=== PATIENT | female | born 1975 | race Hispanic/Latino ===

== ENCOUNTER 2024-12-25 13:00 | Day surgery (SDC) | payer OTHER, SELFPAY ==
[2024-12-17 08:36] VITALS: BMI 37.9
[2024-12-25] VITALS (12 sets, daily range): BP systolic 84–130; BP diastolic 41–74; PULSE 69–87; RESP 10–19; TEMP 35.8–36.5; O2SAT 90–100; BMI 37.8; BMI 31.2
--- NOTE | 2024-12-25 | PATH_ITS ---
[facility] Accession Number: [id number] No. of containers..01 Tissue . 01 Material submitted: . uterus - CERVIX, UTERUS, BILATERAL FALLOPIAN TUBES . 01 Diagnosis: CERVIX, UTERUS AND BILATERAL FALLOPIAN TUBES; HYSTERECTOMY AND BILATERAL SALPINGECTOMY (PRESERVED OVARIES): Uterine weight: 256 grams. Mild chronic cervicitis and tunnel clusters; negative for dysplasia and malignancy. Mixed secretory and inactive endometrium with stromal changes compatible with exogenous hormonal/progestin effect. Negative for atypia, hyperplasia and malignancy. IUD present. Benign, multiple leiomyomas up to 4.3 cm in greatest dimension, in submucosal, subserosal, and intramural location with focal hyalinization and degenerative changes. Negative for cytologic atypia, increased mitotic activity, necrosis or malignancy. Benign bilateral fallopian tubes; right fallopian tube with focal features suggestive of hydrosalpinx. Negative for atypia or malignancy. [facility] 12/31/2024 1438 Local . 01 Electronically signed: . Yanet Cartagena MD, Pathologist NPI- [id number] . 01 Gross description: . Received in formalin with two identifiers and cervix, uterus,. and bilateral fallopian tubes, is an intact uterus (256 grams, 12.1 cm superior to inferior, 7.2 cm medial to lateral, 6.2 cm anterior to posterior) with attached cervix (3.5 x 3.1 cm), attached left fimbriated fallopian tube (6.5 x 0.9 cm), and attached right fallopian tube with no fimbriae identified (2.9 x 0.7 cm and no fimbriae are identified in the container), with no additional adnexa. . The ectocervix is pink-alvarez, smooth and glistening with a yellow-alvarez cystic nodule measuring 0.6 x 0.5 x 0.4 cm containing yellow-alvarez cloudy mucoid material. The os is circular and is 0.6 cm in diameter. The anterior paracervical margin is inked blue while the posterior paracervical margin is inked black. The serosa is diffusely alvarez, roughened, and distorted by nodules ranging from 0.3 to 1.6 cm in greatest dimension, as well as several cystic structures filled with clear serous fluid measuring up to 0.7 cm in greatest dimension. . The endocervical canal has alvarez herringbone mucosa and measures 3.6 cm in length. The endometrial cavity (3.5 cm from cornu to cornu and 6.3 cm in length) is distorted by multiple well-circumscribed, white, whorled nodules located intramurally, subserserosally, and submucosally ranging from 0.4 to 4.3 cm in greatest dimension with no hemorrhage or necrosis identified. Located within the endometrial cavity is a white T-shaped IUD (3.2 x 3.2 cm) located with the crossbars extending from cornu to cornu and the central section located within the body of the endometrial cavity. The wires measure 3.2 cm in length and remain within the endometrial cavity. The endometrium is pink and velvety and averages 0.1 cm thick. The myometrium is pink-alvarez trabecular measuring up to 4.2 cm in maximum thickness. No hemorrhage or necrosis is identified within the nodules. Both tubes have violaceous smooth serosa with no cysts identified. The lumen of the left fallopian is stellate and unremarkable while the lumen of the right fallopian tube is slightly dilated and filled with hemorrhagic material. . Stockroom Helper sections are submitted as follows: A1: Anterior cervix with yellow cystic structure. A2: Posterior cervix. A3: Anterior full thickness section. A4: Composite posterior full thickness section. A5-A6: Nodules. A7: Left fallopian tube to include one-half of bisected fimbriae and cross sections. A8: Right fallopian tube to include one-half of nonfimbriated terminal end cross sections. ([id number]) /MRV 12/26/2024 1836 Local . 01 Pathologist provided ICD-10: R10.2, D25.9 . 01 CPT . 392956 Specimen Comment: A courtesy copy of this report has been sent to [phone] Performed at: 01 [facility] [address] [facility], [place], [place] [id number] MD Murray Gallo MD Phone: [phone]
[2024-12-25] MEDS: FAMOTIDINE 20 MG/2 ML VIAL IV (13:34)
[2024-12-25] MEDS: SCOPOLAMINE 1 PATCH TOP (13:34)
[2024-12-25] MEDS: LACTATED RINGERS 1,000 ML 42 ML IV ×2 (13:35→16:38)
[2024-12-25] MEDS: ACETAMINOPHEN 325 MG TABLET 975 MG PO (13:35)
--- NOTE | 2024-12-25 14:46 | PM.PREOP ---
Pre-operative Note COVID-19 COVID-19 status: Not tested Interval Note History & Physical reviewed/Exam performed by Physician: Yes Changes to H&P: No
[2024-12-25] MEDS: CEFAZOLIN 2 GM/100 ML PREMIX 100 ML IV (15:15)
--- NOTE | 2024-12-25 15:57 | SUR.OPER ---
Lithotomy on padded OR bed. Hannah Pad Positioner under torso. Head on pillow, arms padded and tucked at sides. Legs secured in padded yellow fins stirrups.
[2024-12-25] MEDS: BUPIVACAINE 0.5% W/ EPI (PF) 30 ML VIAL INJ (16:07)
[2024-12-25] MEDS: ROPIVACAINE 0.5% PF 5 MG/ML 20ML VIAL 10 ML INJ (16:32)
--- NOTE | 2024-12-25 17:35 | P.OP_ITS ---
Operative Date/Time/Diagnoses Date of procedure: 12/25/24 Time of procedure: 14:45 Pre-op diagnosis: Abnormal uterine bleeding Uterine fibroids Chronic pelvic pain Post-op diagnosis: same Procedure & Clinicians Procedure: Procedures Operation Date: 12/25/24 14:30 Actual Procedure Side Surgeon p Laparoscopic Total Hysterectomy with bilateral salpingectomy Gianluca Regalado MD Indications: Vinod is a 49-year-old , last menstrual period over a year and a half a code due to her Mirena IUD, who presents in referral for evaluation of persistent pelvic pain and discomfort associated with the presence of multiple uterine fibroids. Patient experienced menarche at age 15 and had regular predictable menses until her mid to late 30s. At that point she began having much have her periods with a week or 2 of cramping and pelvic pressure/achiness leading up to a 7 day extremely heavy. With clots, overflows, and accidents. Patient has a family history of DVTs which precluded her use of oral contraceptives. She had a Mirena IUD inserted 2 years ago and has not had a period since a month or 2 after its insertion but she continues to have a dull pressure/aching feeling in her pelvis along with urinary frequency. She denies any intermenstrual bleeding but does experience deep dyspareunia per day or 2 after intercourse. Patient's Paps have always been normal in STD testing has been negative. She does not recall her last Pap however. Patient's past history is notable for ovarian torsion in her early 30s with a possible salpingectomy performed on 1 side but her ovaries remain in-situ. Recent pelvic ultrasound performed at [facility] on 07/01/2024 shows the uterus to be anteverted and enlarged measuring 9.6 x 6.0 x 5.6 cm. The myometrium is heterogenous. The endometrium measures 7 mm in combined thickness. Numerous uterine fibroids, the largest of which is anterior and intramural measuring up to 4.1 cm. Intrauterine device suboptimally visualized but appears central. Right ovary measures 2.6 cm x 2.2 x 1.4 with a calculated ovarian volume of 4.1 cc. The left ovary measures 3.6 x 2.2 by 2.5 cm with a calculated ovarian volume of 10.2 cc. Ovaries have a normal sonographic appearance with less than 12 follicles seen in each ovary. No adnexal masses are seen and there were no pathological free her abdominal fluid noted. We had an extended discussion about the nature fibroids and their potential contribution to her pelvic pain syndrome. Palpation of the uterus duplicates this pain and given the significant enlargement of the uterus, it is most likely that her pain is due to the bulk of the fibroid uterus as well as tenderness of the uterus itself. We discussed the possibility of expectant management until menopause, GnRH analog therapy, uterine artery embolization, myomectomy, and hysterectomy. After considering all options, the patient would very much like to move forward with hysterectomy plus bilateral salpingectomy and ovarian preservation at the time of surgery. Patient will ideally like to have the surgery performed bleeding up to one of the breaks in the [employer] calendar. She presents today for her scheduled surgery. Surgeon: Gianluca Regalado Computer Operator: Melanie Elder Anesthesia Type: General Operative Notes Findings: The uterus is approximately 8-10 weeks in size with multiple subserosal and intramural myomas. The left tube and ovary appeared to be normal. The right ovary is atrophic and adherent to the right pelvic sidewall, surrounded by dense adhesions and the distal tube on the right is absent. There was no evidence of endometriosis in either the anterior or posterior cul-de-sac. The remainder of the abdomen and pelvis are normal to laparoscopic inspection. Closure Type: primary Specimen(s): left tube, right tube and uterus Applied: catheter Estimated blood loss (mL): 100 Blood products transfused: none Procedure in detail: With the patient in modified dorsal lithotomy position preparations were made by prepping and draping the patient in usual manner for vaginal surgery and insertion of Cardona catheter. A pre-surgical time-out was then taken in accordance with [facility] policy. A bivalve speculum was then placed in the vagina and the cervix visualized. The anterior lip of the cervix was then grasped with a single-tooth tenaculum. The uterus was sounded to 9 cm, the endocervical canal dilated slightly, and a [employer] uterine manipulator with a medium colpotomy cup was placed. The umbilicus was then infiltrated with 0.5% Marcaine with epinephrine. A 1 cm umbilical incision was made transversely and a Veress needle was used to insufflate the abdominal cavity with carbon dioxide. Once the abdomen was appropriately insufflated, a 5 mm trocar and sleeve were then placed through the umbilical incision. The scope was placed through the trocar and the initial assessment of the intra-abdominal contents carried out. A 2nd and 3rd 5 mm port was then placed 1st in the right mid quadrant from then the left mid quadrant by infiltration of the skin and subcutaneous tissues, a 1 cm transverse incision and insertion of the 5 mm bladeless port. Using a 3 puncture technique, the abdomen and pelvis were inspected laparoscopically. Sharp and blunt dissection were used to lyse the adhesions involving the right lower quadrant along with those around the ovary on the right. Uterus is mobilized with the [employer] manipulator and attention turned to the left adnexa. The distal tube was then grasped and the fimbria varicose divided after coagulation with the PowerSeal device. The dissection was then carried out toward the cornua and the fallopian tube amputated. The tube was removed through a 5 mm port and dissection was then carried down using the PowerSeal device so as to divide the utero-ovarian ligament and the round ligament with blunt and sharp dissection of the broad down to the level of the uterine artery. The uterine artery was then skeletonized after development of a bladder flap, coagulated, and divided. Once hemostasis was assured on the left side attention was turned to the right and the tube, utero-ovarian ligament, round ligament, and broad ligament were dissected in a fashion exactly the same as it had been on the left. The right uterine artery was then visualized after skeletonization and coagulated and divided. The uterus was seen to srikanth after coagulation of both your arteries and the cup was identified through the vaginal muscularis at its insertion with the body of the cervix. Circumferential excision of the vaginal cup was accomplished without difficulty using monopolar current and the uterus mobilized. The uterus was then removed through the vagina and the vaginal cuff closed [id number]-zf-toyr with a series of 0 Vicryl vzmjoz-yg-uebox stitches. Hemostasis was excellent, the abdomen was re-insufflated, and the pelvis inspected laparoscopically. The pelvis was inspected for any abnormality or bleeding, and the ureters were each seen to be peristalsing freely. With complete hemostasis assured, the pneumoperitoneum was vented and the ports removed. All of the 5 mm ports were then closed with 4-0 Monocryl on the skin using inverted interrupted sutures. Skin glue was placed and after the glue was dried, an appropriate dressing was applied. The case was then terminated, the patient awakened, and then transferred to PACU after having tolerated the procedure well. Complications: none Post-operative Condition: stable Disposition: PACU Plan for aftercare: Routine postoperative care with follow-up planned for 2 weeks after surgery
[2024-12-25] MEDS: LACTATED RINGERS 1,000 ML 100 ML IV (18:23)
[2024-12-25 19:33] LABS: BUN Creatinine Ratio 19.1 (6-22); Blood Urea Nitrogen 13 mg/dL (7-17); Calcium 8.9 mg/dL (8.4-10.2); Carbon Dioxide 22 mmol/L (22-32); Chloride 104 mmol/L (98-107); Estimated Glomerular Filt Rate > 60 mL/min (>60); Glucose 114 mg/dL (70-99); HEMOLYSIS 33 (0-50); Sodium 137 mmol/L (137-145)
[2024-12-25] MEDS: ACETAMINOPHEN 325 MG TABLET 650 MG PO (20:45)
[2024-12-25] MEDS: ONDANSETRON 4 MG/2 ML INJ IV (21:14)
[2024-12-25] MEDS: DOCUSATE 100 MG CAPSULE 200 MG PO (21:14)
[2024-12-25] MEDS: KETOROLAC 30 MG/ML VIAL IV (23:28)
[2024-12-26] MEDS: OXYCODONE IR 5 MG TABLET PO ×2 (01:31→10:56)
[2024-12-26] MEDS: ACETAMINOPHEN 325 MG TABLET 650 MG PO ×2 (01:31→08:26)
[2024-12-26] MEDS: HYDROMORPHONE 1 MG INJ IV (04:34)
[2024-12-26] MEDS: ONDANSETRON 4 MG/2 ML INJ IV (04:34)
[2024-12-26] MEDS: KETOROLAC 30 MG/ML VIAL IV (04:34)
[2024-12-26 05:56] LABS: Add Manual Diff / Slide Review NO; Basophils Absolute Auto 100 /uL (0-100); Basophils Percent Auto 1.4 % (0-2); Eosinophils Absolute Auto 0 /uL (0-450); Hematocrit 35.7 % (36-46); Hemoglobin 12.5 g/dL (12.0-16.0); Lymphocytes Absolute Auto 1400 /uL (1100-4500); Lymphocytes Percent Auto 13.9 % (25-40); Mean Corpuscular HGB Conc 35.2 % (30-36); Mean Corpuscular Volume 88.1 fL (80-100); Monocytes Absolute Auto 500 /uL (0-900); Monocytes Percent Auto 4.8 % (3-14); Neutrophils Absolute Auto 8000 /uL (1500-7000); Neutrophils Percent Auto 79.9 % (50-75); Platelet Count 249 X10^3/uL (150-400); Red Blood Cell Count 4.05 X10^6/uL (4.0-5.2); Red Cell Distribution Width 12.8 % (11.6-14.8)
[2024-12-26 08:00] VITALS: BP 106/53; PULSE 71; RESP 19; TEMP 36.2; O2SAT 99
--- NOTE | 2024-12-26 08:02 | PM.DS.IH.1 ---
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 Patient experienced menarche at age 15 and had regular predictable menses until her mid to late 30s. At that point she began having much have her periods with a week or 2 of cramping and pelvic pressure/achiness leading up to a 7 day extremely heavy. With clots, overflows, and accidents. Patient has a family history of DVTs which precluded her use of oral contraceptives. She had a Mirena IUD inserted 2 years ago and has not had a period since a month or 2 after its insertion but she continues to have a dull pressure/aching feeling in her pelvis along with urinary frequency. She denies any intermenstrual bleeding but does experience deep dyspareunia per day or 2 after intercourse. Patient's Paps have always been normal in STD testing has been negative. She does not recall her last Pap however. Patient's past history is notable for ovarian torsion in her early 30s with a possible salpingectomy performed on 1 side but her ovaries remain in-situ. Recent pelvic ultrasound performed at [facility] on 07/01/2024 shows the uterus to be anteverted and enlarged measuring 9.6 x 6.0 x 5.6 cm. The myometrium is heterogenous. The endometrium measures 7 mm in combined thickness. Numerous uterine fibroids, the largest of which is anterior and intramural measuring up to 4.1 cm. Intrauterine device suboptimally visualized but appears central. Right ovary measures 2.6 cm x 2.2 x 1.4 with a calculated ovarian volume of 4.1 cc. The left ovary measures 3.6 x 2.2 by 2.5 cm with a calculated ovarian volume of 10.2 cc. Ovaries have a normal sonographic appearance with less than 12 follicles seen in each ovary. No adnexal masses are seen and there were no pathological free her abdominal fluid noted. We had an extended discussion about the nature fibroids and their potential contribution to her pelvic pain syndrome. Palpation of the uterus duplicates this pain and given the significant enlargement of the uterus, it is most likely that her pain is due to the bulk of the fibroid uterus as well as tenderness of the uterus itself. We discussed the possibility of expectant management until menopause, GnRH analog therapy, uterine artery embolization, myomectomy, and hysterectomy. After considering all options, the patient would very much like to move forward with hysterectomy plus bilateral salpingectomy and ovarian preservation at the time of surgery. Patient will ideally like to have the surgery performed bleeding up to one of the breaks in the [facility] calendar. She presents today for her scheduled surgery. Discharge Providers Provider Date of admission: 12/25/2024 Discharge Date: 12/26/24 Primary care physician: Shira Bosch MD Discharge provider: Gianluca Regalado MD Summary Hospital Course Discharge Diagnosis: Abnormal uterine bleeding Chronic pelvic pain Uterine fibroids Status post total laparoscopic hysterectomy with bilateral salpingectomy Hospital Course: The patient was admitted on 12/25/2024 and later that day underwent an uneventful total laparoscopic hysterectomy with bilateral salpingectomy. Full details of the procedure are well summarized on my operative note of that date. Following her surgery the patient has done extremely well with prompt return of bowel and bladder function, she is ambulating independently, tolerating regular diet, and her pain is well relieved with oral pain medications. She will be discharged at this time to home in an afebrile normotensive condition after counseling regarding precautionary symptoms, limitations of activity, medications, and plans for follow-up which will be in 2 weeks or as needed. Medications at discharge will include oxycodone 5 mg p.o. Q 4-6 hours as needed for pain, dispensed 15 with no refills and the patient will resume all preadmission medications as well. Status at Discharge Cognitive/behavioral status at discharge: oriented Functional status at discharge: independent ambulation Overall status at discharge: patient is progressing back to baseline Time Spent with Patient Time spent: Less than 30 minutes Exam Vital Signs (past 8 hours): Oxygen Delivery Method Nasal Cannula Oxygen Flow Rate 0 Const General: cooperative and comfortable Nutritional Appearance: average body habitus Orientation: alert and oriented x3 HENMT Head: normal to inspection, atraumatic and abrasion Ears: hearing grossly normal bilaterally Face and sinus: face symmetric Eyes General: appearance normal, both eyes and all related structures Conjunctivae: conjunctivae normal Sclera: sclerae normal EOM: EOM intact bilaterally Neck Neck: normal visual inspection Resp Effort & Inspection: normal respiratory effort and able to speak in complete sentences Auscultation: clear to auscultation bilaterally Cardio Rate: regular rate Rhythm: regular rhythm Heart Sounds: S1 normal, S2 normal and no murmurs GI Inspection: normal to inspection and incision (Surgical dressings clean and dry) Palpation: soft, no hepatosplenomegaly and tender (Mild, diffuse postsurgical tenderness) External Female Exam: other (No significant bleeding noted) Extrem General: no calf tenderness Psych Appearance: grossly normal Mental Status: mental status grossly normal Speech and Movement: speech and movement normal Mood: congruent mood Affect: normal affect Attitude: cooperative Thought Process: normal Thought Content: normal Judgment: judgment good Objective Labs 12/26/24 05:41 12/25/24 19:05 Labs: Laboratory Results - last 24 hr 12/25/24 12/26/24 19:05 05:41 WBC 10.0 RBC 4.05 Hgb 12.5 Hct 35.7 L MCV 88.1 MCH 31.0 MCHC 35.2 RDW 12.8 Plt Count 249 Neut % (Auto) 79.9 H Lymph % (Auto) 13.9 L [place] % (Auto) 4.8 Eos % (Auto) 0.0 L Baso % (Auto) 1.4 Neut # (Auto) 8000 H Lymph # (Auto) 1400 [place] # (Auto) 500 Eos # (Auto) 0 Baso # (Auto) 100 Sodium 137 Potassium 4.0 Chloride 104 Carbon Dioxide 22 BUN 13 Creatinine 0.68 Estimated GFR > 60 BUN/Creatinine Ratio 19.1 Glucose 114 H Calcium 8.9 PFSH Medical History (Updated 09/15/24 @ 19:29 by Rizwana Day) Asthma Depression Chronic pelvic pain syndrome in female Uterine fibroid Social History household members: spouse and children alcohol intake: current Discharge Assessment & Plan Assessment and Plan Assessment: Abnormal uterine bleeding Chronic pelvic pain Uterine fibroids Status post total laparoscopic hysterectomy with bilateral salpingectomy Plan of Treatment: Routine postoperative care with follow-up planned for 2 weeks after surgery or as needed Discharge Plan Discharge Plan Patient Disposition: Home Provider Discharge Comment: Please review the written instructions you received when you were discharged from the hospital. Your follow-up appointment is scheduled for 2 weeks after your surgery and I look forward to seeing you then. If however in the meanwhile you have any questions concerns or other issues, please contact me either by phone at the office 3. [phone], or via the patient portal. Discharge orders & Medications Discharge Orders: Discharge (Order); Ordered 12/26/24 Ordered By: Gianluca Regalado Prescriptions: New oxycodone 5 mg Tablet 5 mg PO Q4HR PRN (Reason: Pain, Moderate (4-6)) Qty: 15 0RF Continued citalopram 10 mg tablet 10 mg PO DAILY No Action fluconazole 150 mg tablet 150 mg PO Q3D Qty: 2 3RF Rx Instructions: Repeat second dose 72 hrs after first dose. Follow up/Referrals: Shira Bosch MD [Primary Care Provider, Family Practice] Gianluca Regalado MD [Physician, CORPORATE BOND TRADER] Diet/Activity/Treatments Diet: Diet as Tolerated Activity: As tolerated Other treatments: Htgi-zsh-jnkjqmv Tylenol and/or ibuprofen may be used as needed for additional pain relief. Bqlu-ggg-wziyaqc stool softeners and/or MiraLax may be used as needed for constipation. Skin/Wound/Dressing Care Report to your healthcare provider any signs of infection, such as:: chills, fever, increased pain, unusual drainage and unusual redness Dressing: Dressing should be removed on the morning of 12/27/2024 Visit Report/Discharge Packet Instructions: DI for Hysterectomy, DI for Laparoscopy, DI for Prescription Opioid Use Stand Alone Forms: Surgery Discharge Print Language: Trinidadian Discharge Data Primary Care Provider: Shira Bosch Attending Provider: Gianluca Regalado Quality VTE Deep Vein Thrombosis/Pulmonary Embolism Present on Admission: No IH PROFEE Charge Codes Discharge inpatient/observation: 94118
[2024-12-26] MEDS: CITALOPRAM 10 MG TABLET PO (08:27)
[2024-12-26] MEDS: DOCUSATE 100 MG CAPSULE 200 MG PO (08:27)
--- NOTE | 2024-12-26 11:17 | PC.NURSE ---
Day shift: Discharge instructions gone over with patient. All questions answered, patient stated understanding. PIV removed prior to discharge. All belongings with patient. PCT Humza escorted patient via wheelchair to exit.
--- NOTE | 2024-12-26 12:41 | CM.DANOTE ---
DCP Assessment Note: Pt is a 49yo female, resident of [place], is admitted s/p total hysterectomy. Pt lives in a house with her spouse and children. Pt's Primary Care Provider is Dr. Shira Bosch and insurance is [facility]. Reviewed chart and discussed with multidisciplinary team pt's medical status and initial discharge needs. EMR review assessment, DCP not able to meet with pt prior to discharge. Plan: Pt discharged home with family, no discharge needs identified. CM team will follow closely for coordination of discharge plans. [place] [facility] Discharge Planning/Care Management CM Discharge Assessment Start: 12/25/24 13:02 Freq: Status: Discharge Protocol: Document 12/26/24 12:40 MW (Rec: 12/26/24 12:41 MW [id number]) Discharge Planning Assessment Assigned Business Intelligence Architect MARY Pratt DPOA/Assigned Designee Name Darrius Spouse Contact Information [phone] Advance Directives? No History Provided By Patient,Family Member,Medical Record Has Patient been admitted in last 30 No days? Prior Living Arrangements House Comment [place] Household Members spouse,children Type of transporation used prior to Drives own vehicle admit Independent with ADL's Yes Is patient alert and oriented? Yes Caregiver for Another Yes: Children Barriers to Discharge No Discharge Plan Home Review Status In Process Please Provide Date Initial DC 12/26/24 Assessment Was Performed Next Review Type Continued Stay Review
== END 2024-12-26 11:10 | disposition home or self-care (01) ==
LOC: OR 13:01 → AC 13:02
PROVIDERS: PCP Student in an Organized Health Care Education/Training Program; Referring Provider Obstetrics & Gynecology; Visit Provider Obstetrics & Gynecology
PROC: 0UT94ZZ Resection of Uterus, Percutaneous Endoscopic Approach (ICD-10-PCS; CPT 58573; principal; 2024-12-25 14:30)
DX: N93.9 Abnormal uterine and vaginal bleeding, unspecified (principal); R10.2 Pelvic and perineal pain; D25.9 Leiomyoma of uterus, unspecified; N72 Inflammatory disease of cervix uteri; D25.1 Intramural leiomyoma of uterus; D25.0 Submucous leiomyoma of uterus; D25.2 Subserosal leiomyoma of uterus
CPT/HCPCS: 58573; 36415; 80048; 81025; 85025; J0690; J1100; J1171; J1885; J2250; J2405; J2704; J3010; J3475; J3490